=== PATIENT | female | born 1990 | race Caucasian/White ===

== ENCOUNTER 2016-10-20 11:56 | Emergency (ER) | payer SELFPAY ==
[~2016-10-20] VITALS: Ht 165.1 cm; Wt 68.5 kg
[2016-10-20 11:58] VITALS: BP 129/84
[2016-10-20] MEDS ORDERED: LIDOCAINE 1%, 20ML ONE (12:15)
[2016-10-20] MEDS ORDERED: LIDOCAINE 1%, 20ML SQ ONE (12:30)
== END 2016-10-20 12:32 | disposition home or self-care (01) ==
LOC: ED 12:15
DX: K02.9 Dental caries, unspecified (principal)
CPT/HCPCS: 64400